=== PATIENT | female | born 1975 | race Caucasian/White ===

== ENCOUNTER 2022-02-01 05:56 | Day surgery (SDC) | payer OTHER ==
[2022-01-22 10:46] VITALS: BMI 25.1
[2022-02-01] MEDS ORDERED: MIDAZOLAM HCL 2 MG/2 ML SINGLE DOSE VIAL ONE ×3 (07:10→09:32)
[2022-02-01] MEDS ORDERED: DEXAMETHASONE SOD PHOSPHATE 10 MG/1 ML VIAL ONE (07:10)
[2022-02-01] MEDS ORDERED: ROPIVACAINE HCL/PF 100 MG/20 ML VIAL ONE (07:11)
[2022-02-01] MEDS ORDERED: BUPIVACAINE HCL/PF 0.25% (2.5MG/ML) 10 ML VIAL ONE (07:38)
[2022-02-01] MEDS ORDERED: BUPIVACAINE HCL/EPINEPHRINE/PF 30 ML VIAL IJ ONE (07:38)
[2022-02-01] MEDS ORDERED: PROPOFOL 20 ML ONE ×3 (07:51)
[2022-02-01] MEDS ORDERED: fentaNYL CITRATE 250 MCG/5 ML VIAL ONE (07:52)
[2022-02-01] MEDS ORDERED: DEXAMETHASONE SOD PHOSPHATE 4 MG/1 ML VIAL ONE (08:34)
[2022-02-01] MEDS ORDERED: ONDANSETRON 4 MG/2 ML VIAL ONE (08:34)
[2022-02-01] MEDS ORDERED: KETOROLAC TROMETHAMINE 30 MG/1 ML VIAL ONE (08:34)
[2022-02-01] MEDS ORDERED: ceFAZolin SODIUM 1 GM VIAL ONE (08:34)
[2022-02-01] MEDS ORDERED: BUPIVACAINE 0.25% /EPI 1:200,000 10 ML VIAL NR ONE (09:57)
[2022-02-01] MEDS ORDERED: ONDANSETRON 4 MG/2 ML VIAL IVPUSH PRN (11:57)
[2022-02-01 12:04] VITALS: PULSE 64; TEMP 97.4
[2022-02-01 13:33] VITALS: BP 98/58
== END 2022-02-01 14:00 | disposition home or self-care (01) ==
LOC: FASU 05:56
PROVIDERS: ATTEND Orthopaedic Surgery Sports Medicine
PROC: 0LS30ZZ Reposition Right Upper Arm Tendon, Open Approach (ICD-10-PCS; 2022-02-01)
PROC: 0LQ14ZZ Repair Right Shoulder Tendon, Percutaneous Endoscopic Approach (ICD-10-PCS; principal; 2022-02-01 08:15)
PROC: 0RNJ4ZZ Release Right Shoulder Joint, Percutaneous Endoscopic Approach (ICD-10-PCS; 2022-02-01 08:15)
PROC: 0RBJ4ZZ Excision of Right Shoulder Joint, Percutaneous Endoscopic Approach (ICD-10-PCS; 2022-02-01 08:15)
DX: M75.121 Complete rotator cuff tear or rupture of right shoulder, not specified as traumatic (principal); M75.21 Bicipital tendinitis, right shoulder; S43.431A Superior glenoid labrum lesion of right shoulder, initial encounter; X58.XXXA Exposure to other specified factors, initial encounter; Y93.9 Activity, unspecified; Y92.9 Unspecified place or not applicable; M75.41 Impingement syndrome of right shoulder
CPT/HCPCS: 81025; 88304-TC; 94760; J1100

== ENCOUNTER 2022-10-17 04:20 | Day surgery (SDC) | payer OTHER ==
[2022-10-15 11:07] VITALS: BMI 24.0
[2022-10-17 12:36] VITALS: BP 105/75; PULSE 47; RESP 15; TEMP 98
== END 2022-10-17 13:05 | disposition home or self-care (01) ==
LOC: JASU-ENDO 04:20
PROVIDERS: ATTEND Internal Medicine Gastroenterology
PROC: 0DJD8ZZ Inspection of Lower Intestinal Tract, Via Natural or Artificial Opening Endoscopic (ICD-10-PCS; principal; 2022-10-17 11:00)
DX: Z12.11 Encounter for screening for malignant neoplasm of colon (principal); K59.89 Other specified functional intestinal disorders; K64.8 Other hemorrhoids
CPT/HCPCS: 81025

== ENCOUNTER → 2024-07-09 | Day surgery (SDC) | payer OTHER | END | disposition home or self-care (01) | LOC: JRADIR 09:51 | PROVIDERS: ATTEND Orthopaedic Surgery Sports Medicine | PROC: BQ31Y0Z Magnetic Resonance Imaging (MRI) of Left Hip using Other Contrast, Unenhanced and Enhanced (ICD-10-PCS; principal; 2024-07-09) | DX: M25.552 Pain in left hip (principal) | CPT/HCPCS: 27093; 27095; 72170-TC-FY; 73502-TC-LT-FY; 73525-TC-FY; 73722-TC; 77002-TC-FY; 84703 ==